=== PATIENT | female | born 2000 | race African-American/Black ===

== ENCOUNTER 2022-08-09 08:54 | Emergency (ER) | payer MEDICAID ==
[~2022-08-09] VITALS: Ht 165.1 cm; Wt 118.3 kg
[2022-08-09 09:23] VITALS: BP 142/92
[2022-08-09] MEDS ORDERED: PENICILLIN G BENZ 1200000 UNITS/2 ML SYRG IM ONE (11:45)
[2022-08-09] MEDS ORDERED: IBUP800T26 PO (11:49)
[2022-08-09] MEDS ORDERED: IBUPROFEN 800 MG TAB PO ONE (12:45)
== END 2022-08-09 12:47 | disposition home or self-care (01) ==
LOC: ER 08:54
DX: J02.0 Streptococcal pharyngitis (principal)
CPT/HCPCS: 87804; 87880; 96372; 99283; J0561